=== PATIENT | male | born 1935 | race Caucasian/White ===

== ENCOUNTER 2016-09-07 01:27 | Emergency (ER) | payer MEDICARE, MEDICAID ==
[~2016-09-07 01:27] MED LIST: AFRIN-DPS15 ML IH; ASPIR 8181 MG NG; BISCOLAX10 MG RC; CHLORASEPTIC SPR6 OZ PO; CIPRO DPS500 MG NG; COREG DPS3.125 MG PO; DUONEB DPS3 ML IH; GLUTOSE 1537.5 GM PO; HUMALOG, N100 UNITS/ SQ; LASIX DPS20 MG PO; LIPITOR DPS20 MG NG; LIQUITEARS15 ML OU; LORTAB LIQUID D15 ML NG; NOVOLIN N,100 UNITS/ SQ; PLAVIX75 MG NG; PREVACID30 MG NG; ROBITUSSIN200 MG/10 NG; SENOKOT DPS30 ML NG; [UNRECOGNIZED DRUG - OTHER] NG
--- NOTE | 2016-09-12 07:37 | ER ---
ADMIT: 09/07/2016 RM/LOC: [facility] MR#: [id number] [address] [address] [place] [address] Emergency Room Report SEX: M AGE: 81 : 1935 DATE: 09/07/2016 TIME: 0127 Please refer to my T-sheet for complete H and P. HISTORY OF PRESENT ILLNESS: Briefly, the patient is an 81-year-old, who has had a cough. They were worried he could have aspirated. He ate a granola bar tonight, started coughing. He has been coughing ever since. They said his oxygen sats seemed a little irregular over there. They gave him a breathing treatment and transferred over here. The patient denies any pain. No fevers, no runny nose. No other complaints. He has a history of a severe CVA, multiple in the past. He is nonambulatory. He is a DNR according to his sheets. PHYSICAL EXAMINATION: VITAL SIGNS: His blood pressure 128/64, pulse 66, respirations 20, temp 98.7, saturating 93%. GENERAL: He is in no acute distress, but coughing. HEENT: Grossly normal. LUNGS: Little bit coarse with rhonchi. HEART: Irregular, but regular rate. ABDOMEN: Soft. SKIN: No rash. NEURO: He is at his baseline. EMERGENCY DEPARTMENT COURSE: We gave him a DuoNeb. We did a suction here. We gave him Decadron 10 IV, Zosyn 3.375 g IV. A chest x-ray, revealed no obvious infiltrate. He was feeling much better. His cough resolved. His oxygen levels were right around the 90s, so we put him on 1 L, which he was controlling well. He actually did not want to be admitted to the hospital. He [facility]. We called them, we are transferring him back. His cough is much better. ASSESSMENT: 1. Bronchitis. 2. Cough, that is improved. There is a concern of aspiration that is the reason for the dose of Zosyn. We are going to put him on Z-Cody. PLAN: Z-Cody, prednisone 20 a day for 5 days. Continue nebs, O2 p.r.n., [facility]. Dillon Peña MD/ brenda JOB #: [id number] CC: Dillon Peña MD, Attending Physician
[2016-09-15] MEDS ORDERED: TYLENOL DPS325 MG PO ×2 (15:00→15:10)
[2016-09-15] MEDS ORDERED: TENORMIN DPS50 MG PO (15:00)
[2016-09-15] MEDS ORDERED: ASPIRIN EC81 MG PO (15:01)
[2016-09-15] MEDS ORDERED: VOLTAREN 1% GE100 GM TP (15:03)
[2016-09-15] MEDS ORDERED: LIPITOR DPS20 MG PO (15:03)
[2016-09-15] MEDS ORDERED: PRILOSEC DPS20 MG PO (15:03)
[2016-09-15] MEDS ORDERED: NEURONTIN DPS300 MG PO (15:04)
[2016-09-15] MEDS ORDERED: BREATHE RIGHT1 EACH NS (15:04)
[2016-09-15] MEDS ORDERED: DUONEB DPS3 ML IH (15:05)
[2016-09-15] MEDS ORDERED: ADULT TUSS100 MG/5 M PO (15:05)
[2016-09-15] MEDS ORDERED: LANTUS100 UNITS/ SQ (15:05)
[2016-09-15] MEDS ORDERED: LIDODERM PATCH 5% TP (15:07)
[2016-09-15] MEDS ORDERED: MIRALAX PACKET17 GM PO ×2 (15:07→15:11)
[2016-09-15] MEDS ORDERED: SANCTURA20 MG PO (15:07)
[2016-09-15] MEDS ORDERED: FLOMAX DPS0.4 MG PO (15:07)
[2016-09-15] MEDS ORDERED: COUMADIN DPS3 MG PO (15:08)
[2016-09-15] MEDS ORDERED: COUMADIN DPS2 MG PO (15:08)
[2016-09-15] MEDS ORDERED: TYLENOL #3 DPS1 TAB PO (15:09)
[2016-09-15] MEDS ORDERED: LIQUITEARS15 ML OU (15:09)
[2016-09-15] MEDS ORDERED: DULCOLAX-DPS10 MG PR (15:10)
[2016-09-15] MEDS ORDERED: NITROSTAT0.4 MG SL (15:10)
[2016-09-15] MEDS ORDERED: COLACE-DPS100 MG PO (15:11)
== END 2016-09-07 03:10 | disposition home or self-care (01) ==
LOC: ER 01:27
DX: J20.9 Acute bronchitis, unspecified (principal); I25.10 Atherosclerotic heart disease of native coronary artery without angina pectoris; I12.9 Hypertensive chronic kidney disease with stage 1 through stage 4 chronic kidney disease, or unspecified chronic kidney disease; E11.22 Type 2 diabetes mellitus with diabetic chronic kidney disease; N18.9 Chronic kidney disease, unspecified; J44.9 Chronic obstructive pulmonary disease, unspecified; Z86.73 Personal history of transient ischemic attack (TIA), and cerebral infarction without residual deficits; Z88.8 Allergy status to other drugs, medicaments and biological substances; Z79.899 Other long term (current) drug therapy

== ENCOUNTER 2016-09-13 10:07 | Observation (INO) | payer MEDICARE, MEDICAID ==
[~2016-09-13] VITALS: Ht 180.3 cm; Wt 75.4 kg
--- NOTE | ~2016-09-13 | HP ---
ADMIT: 09/13/2016 RM/LOC: [facility] MR#: [id number] [address] [address] [place] [address] History and Physical SEX: M AGE: 81 : 1935 DATE OF SERVICE: CHIEF COMPLAINT: Syncope. HISTORY OF PRESENT ILLNESS: The patient is an 81-year-old gentleman, normally resides up to the [facility]. Had an episode today where he was getting off the restroom stool and had a syncopal episode. Witnessed by nursing staff. Sent to the emergency room for further evaluation. The patient states over the last few days, he just has not felt as well. Not eating or drinking as well. Had an episode of which he had some aspiration on the 07 of September, 6 days ago, where he was seen in the emergency room. Placed on steroids. Since that time, he just really has not had a good appetite. No fevers. No chills. No worsened cough. No nausea. No vomiting. No chest pain currently. PAST MEDICAL HISTORY: 1. Type 2 diabetes, on insulin therapy. 2. History of coronary artery disease, status post N-STEMI in 2014. 3. History of stroke with residual right-sided weakness, severe, as well as dysphagia. 4. History of hypertension. 5. Chronic degenerative joint disease. 6. History of atrial fibrillation, on chronic anticoagulation. 7. Overactive bladder. PAST SURGICAL HISTORY: Had a history of a TURP, cataract in the left, carotid endarterectomy in 2005. FAMILY HISTORY: Reviewed and noncontributory. SOCIAL HISTORY: He is a . Originally from [place]. Daughter is with him. History of smoking in the years past. REVIEW OF SYSTEMS: A complete review of systems was performed and as per HPI, otherwise fully reviewed and negative. MEDICATIONS: 1. Tylenol. 2. Atenolol. 3. Aspirin. 4. Atorvastatin. 5. Omeprazole. 6. Voltaren gel. 7. Amlodipine. 8. Gabapentin. 9. Guaifenesin. 10.DuoNebs. 11.Lantus. 12.Lidoderm patch. 13.MiraLax. ADMIT: 09/13/2016 RM/LOC: [facility] MR#: [id number] [address] [address] [place] [address] History and Physical SEX: M AGE: 81 : 1935 14.Tamsulosin. 15.Trospium twice daily. 16.Warfarin. 17.Tylenol. 18.Acetaminophen. 19.Furosemide p.r.n. PHYSICAL EXAMINATION: VITAL SIGNS: Temperature 97.8, pulse 72, respiratory rate 16, blood pressure 124/78, saturating 100% on room air. GENERAL: He is alert and oriented x3. No acute distress. Very pleasant gentleman. Accompanied by daughter. HEENT: Normocephalic, atraumatic. Pupils are equal bilaterally. Dry mucous membranes. NECK: No lymphadenopathy. Soft, supple. Trachea midline. LUNGS: Clear to auscultation bilaterally with very end-expiratory wheezes. Occasional throughout. Overall pretty clear. HEART: Regular rate and rhythm. No murmurs, rubs, or gallops. Abdomen soft, nontender. Bowel sounds present. EXTREMITIES: No cyanosis, clubbing, or edema. MUSCULOSKELETAL: He does not move his right upper extremity. Minimal movement of his right lower extremity. 5/5 left upper extremity strength. SKIN: No rashes noted. PSYCHIATRIC: Normal mood and affect. Very pleasant gentleman. LABORATORY AND X-RAY DATA: Creatinine 1.5 with baseline near 1. BUN 32, INR 2.2. White count 10.3, hemoglobin 13.3, platelets 232. Lactic acid initially 2.4, repeat 1.7. UA is pending. Procalcitonin 1.85. Chest x-ray reviewed. No acute infiltrate. EKG is reviewed. Got atrial fibrillation. Normal rate of about 65. No ST-segment abnormalities. His troponin was negative as well. ASSESSMENT: 1. Syncopal episode. ADMIT: 09/13/2016 RM/LOC: [facility] MR#: [id number] [address] [address] [place] [address] History and Physical SEX: M AGE: 81 : 1935 2. History of stroke. 3. Coronary artery disease. 4. Diabetes. 5. Right hemiplegia. 6. Dysphagia. PLAN: At this point in time, it is unclear regarding syncopal episode. May have been vasovagal precipitated also by looks little a little bit of dehydration and hypovolemia. We will give him some hydration. Check his BMP in the morning. Monitor on telemetry overnight given his cardiac history. If does well, likely back at home in the morning. He is agreeable with this plan. Alexy Samayoa MD/ brenda JOB #: [id number] CC: Alexy Samayoa, Attending Physician Alexy Samayoa, Family Physician
[2016-09-15] MEDS ORDERED: TENORMIN DPS50 MG PO (15:00)
[2016-09-15] MEDS ORDERED: TYLENOL DPS325 MG PO ×2 (15:00→15:10)
[2016-09-15] MEDS ORDERED: ASPIRIN EC81 MG PO (15:01)
[2016-09-15] MEDS ORDERED: LIPITOR DPS20 MG PO (15:03)
[2016-09-15] MEDS ORDERED: VOLTAREN 1% GE100 GM TP (15:03)
[2016-09-15] MEDS ORDERED: PRILOSEC DPS20 MG PO (15:03)
[2016-09-15] MEDS ORDERED: NEURONTIN DPS300 MG PO (15:04)
[2016-09-15] MEDS ORDERED: BREATHE RIGHT1 EACH NS (15:04)
[2016-09-15] MEDS ORDERED: ADULT TUSS100 MG/5 M PO (15:05)
[2016-09-15] MEDS ORDERED: LANTUS100 UNITS/ SQ (15:05)
[2016-09-15] MEDS ORDERED: DUONEB DPS3 ML IH (15:05)
[2016-09-15] MEDS ORDERED: SANCTURA20 MG PO (15:07)
[2016-09-15] MEDS ORDERED: LIDODERM PATCH 5% TP (15:07)
[2016-09-15] MEDS ORDERED: FLOMAX DPS0.4 MG PO (15:07)
[2016-09-15] MEDS ORDERED: MIRALAX PACKET17 GM PO ×2 (15:07→15:11)
[2016-09-15] MEDS ORDERED: COUMADIN DPS3 MG PO (15:08)
[2016-09-15] MEDS ORDERED: COUMADIN DPS2 MG PO (15:08)
[2016-09-15] MEDS ORDERED: LIQUITEARS15 ML OU (15:09)
[2016-09-15] MEDS ORDERED: TYLENOL #3 DPS1 TAB PO (15:09)
[2016-09-15] MEDS ORDERED: NITROSTAT0.4 MG SL (15:10)
[2016-09-15] MEDS ORDERED: DULCOLAX-DPS10 MG PR (15:10)
[2016-09-15] MEDS ORDERED: COLACE-DPS100 MG PO (15:11)
--- NOTE | 2016-09-16 07:09 | DS ---
ADMIT: 09/13/2016 RM/LOC: [address] [facility] MR#: [id number] [address] [address] [place] [address] Discharge Summary SEX: M AGE: 81 : 1935 ADMISSION DATE: 09/13/2016 DISCHARGE DATE: 09/14/2016 CONSULTATIONS: None. PROCEDURES: None. FINAL DIAGNOSES: 1. Syncope. 2. Mild hypovolemia and dehydration. 3. History of coronary artery disease, status post NSTEMI 2014. 4. History of stroke with residual right-sided hemiplegia. 5. Dysphagia. 6. Chronic hypertension. 7. History of atrial fibrillation, on chronic anticoagulation. 8. Diabetes type 2, on insulin. REASON FOR ADMISSION: The patient is an 81-year-old gentleman. During transferring shortly after using the restroom yesterday, had a syncopal episode. He was transferred to the emergency room. Admitted to observation for monitoring. HOSPITAL COURSE: The patient was admitted. His creatinine was up, looked a little hypovolemic on exam. Gave IV fluids. He felt much improved. Had no syncopal episodes. No events on tele. We will plan on discharging him back to the [facility] with stopping his amlodipine, otherwise keeping him off Lasix as well. DISCHARGE INSTRUCTIONS: Please see discharge MAR for full details. He will follow up with his primary care provider at the [facility] in 7-10 days. Alexy Samayoa MD/ sis JOB #: [id number] CC: Alexy Samayoa MD, Attending Physician Alexy Samayoa MD, Family Physician
--- NOTE | 2016-10-13 17:09 | ER ---
ADMIT: 09/13/2016 RM/LOC: 426 [facility] MR#: [id number] [address] [address] [place] [address] Emergency Room Report SEX: M AGE: 81 : 1935 DATE: 09/13/2016 This 81-year-old, vet home patient was apparently being lifted in a whole body lift off the commode when he had a syncopal episode and subsequently transferred here. The patient was not aware of the event. Thinks he may have been out for just a few seconds, feels back to his usual self without any complaints other than just a generalized weakness. He has been sick recently with fever, chills ,and cough, voices difficulty urinating. PAST MEDICAL HISTORY: Cardiac disease, hypertension, and COPD. PHYSICAL EXAMINATION: GENERAL: Reveals an elderly gentleman, in no acute distress. He is alert, talkative. He does appear cachectic. LUNGS: He had rhonchi in the lungs bilaterally. CARDIOVASCULAR: Irregular rate, irregular rhythm with no murmurs. ABDOMEN: Soft. NEUROLOGICAL: No focal findings on physical exam neurologically. LABORATORY DATA: EKG is atrial fibrillation. Cardiac markers are negative. BNP is 3958. His white cell count is 10.3, hemoglobin of 13.3, BUN 32, glucose 126, creatinine 1.5. The patient is being admitted for: 1. Syncope. 2. CHF. 3. Chronic renal insufficiency. Graham Savage MD/ brenda JOB #: [id number] CC: Alexy Samayoa MD, Attending Physician Alexy Samayoa MD, Family Physician
== END 2016-09-14 13:10 ==
LOC: ER 10:07 → 4PCU 13:30
PROVIDERS: ADMIT Internal Medicine
DX: R55 Syncope and collapse (principal); E86.0 Dehydration; E86.1 Hypovolemia; E11.9 Type 2 diabetes mellitus without complications; I25.10 Atherosclerotic heart disease of native coronary artery without angina pectoris; I48.91 Unspecified atrial fibrillation; N32.81 Overactive bladder; R13.10 Dysphagia, unspecified; Z86.73 Personal history of transient ischemic attack (TIA), and cerebral infarction without residual deficits; Z79.01 Long term (current) use of anticoagulants; Z98.42 Cataract extraction status, left eye; Z98.890 Other specified postprocedural states